=== PATIENT | female | born 1970 | race African-American/Black ===

== ENCOUNTER 2016-08-12 17:53 | Emergency (ER) | payer MEDICARE, MEDICAID ==
[~2016-08-12] VITALS: Ht 172.7 cm; Wt 65.0 kg
[~2016-08-12 17:53] MED LIST: CIPRO; CLON0.3T4; DILT360C30 PO; LASIX; LISI40TA4 PO; METO50TA5 PO; RENVELA
[2016-08-12 17:58] VITALS: BP 147/85
== END 2016-08-12 21:02 | disposition left against medical advice (07) ==
LOC: ER 17:53
DX: Z53.21 Procedure and treatment not carried out due to patient leaving prior to being seen by health care provider (principal)